=== PATIENT | male | born 1995 | race Caucasian/White ===

== ENCOUNTER 2020-08-29 20:39 | Emergency (ER) | payer BC, SELFPAY ==
[2020-08-29 21:30] VITALS: BP 171/92; PULSE 72; RESP 20; TEMP 36.6; O2SAT 98; BMI 20.3
[2020-08-29 22:01] LABS: UTC Strep Screen (Rapid) Negative (Negative)
[2020-08-29 22:02] LABS: UTC Influenza A Antigen Negative (Negative)
[2020-08-29 22:03] LABS: UTC Influenza B Antigen Negative (Negative)
--- NOTE | 2020-08-29 22:11 | HMH.EDUTC ---
[facility] [place] Disposition Clinical Impression: Viral syndrome, Exposure to COVID-19 virus Disposition: Home, Self-Care Condition on Discharge: Good Instructions: Preventing the Spread of Coronavirus Discharge Instructions Additional Instructions: Drink plenty of fluids. Take tylenol for pain or fever. Return if you begin to have difficulty breathing. Follow up with your regular doctor. GO TO THE ER FOR ANY WORSENING SYMPTOMS Referrals: Андрей Ferrari [Primary Care Provider] - Forms: Work/School Release Time of Disposition: 22:13 Medical Decision Making - Medical Records Medical records reviewed: No: I reviewed the patient's medical records. - Aníbal Inquiry Pt receiving controlled substance: No Vital Signs: 08/29/20 21:30 08/29/20 22:15 Temperature 97.9 F 97.9 F Temperature Source Temporal Artery Scan Pulse Rate 72 Pulse Rate [Right Brachial] 72 Respiratory Rate 20 20 Blood Pressure 171/92 H Blood Pressure [Right Arm] 171/92 H Blood Pressure Mean [Right Arm] 118 Blood Pressure Source [Right Arm] Automatic Cuff Blood Pressure Position [Right Arm] Sitting 02 Sat by Pulse Oximetry 98 Oxygen Delivery Method Room Air - Lab Data Lab Results 08/29/20 21:48: Influenza Type A Ag Negative, Influenza Type B Ag Negative 08/29/20 21:48: Strep Scn Rapid Clinic Negative Orders (Tests/Meds): ORDERS Category Date Time Status Covid-19 Nasal PCR ([facility]) Routine Lab 08/29/20 21:31 Received Strep Screen Confirmation Stat Micro 08/29/20 21:48 Received [facility] HPI - General Stated complaint: covid test Time Seen by Provider: 08/29/20 22:11 Mode of Arrival: Ambulatory Source of Information: Patient Limitations: No Limitations Description of Symptoms (Recalled from Triage Doc. by RN): PATIENT C/O CONGESTION, FATIGUE, SORE THROAT, AND HEADACHE X 2 DAYS. REQUESTING COVID TEST. HEENT Symptoms (Recalled from RN notes): Yes Resp Symptoms (Recalled from RN notes): No Skin Symptoms (Recalled from RN notes): No MS Symptoms (Recalled from RN notes): No Functional Status (Recalled from RN notes): WNL - History of Present Illness Provider Complaint: He states that he has been feeling bad since yesterday. Other family members have similar symptoms. He is worried about covid and would like to be tested. - Related Data Home Medications Medication Instructions Recorded Confirmed Pramipexole Di-HCl [Mirapex 1 tab PO DAILY 06/26/19 06/26/19 0.125mg tablet] Allergies Allergy/AdvReac Type Severity Reaction Status Date / Time No Known Allergies Allergy Verified 06/26/19 21:31 - Worker's Comp Is this a Worker's Comp case?: No H History - Hepatitis A Screen Drug use history?: No High risk sexual behaviors?: No History of sexually transmitted infection?: No Currently employed?: No Childcare worker?: No Do you have indoor plumbing?: Yes Do you have electricity?: Yes Attestation statement:: This patient has been screened for Hepatitis A risk factors. I have reviewed the patient's past medical history: Yes - Social History Smoking Status: Current every day smoker Tobacco Type: cigarettes # Packs/Day (cigarettes): 1 Alcohol Intake: never Occupational Status: other ROS Obtained: Yes All systems reviewed & no additional complaints - Constitutional Constitutional: Reports system reviewed and no additional complaints, except as docu - Eyes Eyes: Reports system reviewed and no additional complaints, except as docu - ENT Ears, Nose, Mouth, and Throat: Reports system reviewed and no additional complaints, except as docu - Cardiovascular Cardiovascular: Reports system reviewed and no additional complaints, except as docu Physical Exam - General General appearance: alert, in no apparent distress - Head Head exam: atraumatic, normocephalic, normal inspection - Eye Eye exam: Present: normal appearance, PERRL, EOMI - ENT ENT exam: Present: normal exam, normal
[2020-08-29 22:15] VITALS: BP 171/92; PULSE 72; RESP 20; TEMP 36.6; O2SAT 98
== END 2020-08-29 22:19 | disposition home or self-care (01) ==
PROVIDERS: Emergency Provider Nurse Practitioner Family; PCP Family Medicine
DX: Z20.822 Contact with and (suspected) exposure to COVID-19 (principal); B34.9 Viral infection, unspecified; F17.210 Nicotine dependence, cigarettes, uncomplicated
CPT/HCPCS: 87804; 87880; 99202; G0463; U0003

== ENCOUNTER 2020-11-21 13:12 | Emergency (ER) | payer BC, SELFPAY ==
[2020-11-21 13:15] VITALS: BP 144/84; PULSE 109; RESP 20; TEMP 37.8; O2SAT 98; BMI 20.3
[2020-11-21 13:53] LABS: UTC Strep Screen (Rapid) Negative (Negative)
[2020-11-21 13:56] VITALS: BP 144/84; PULSE 109; RESP 20; TEMP 37.8; O2SAT 98
--- NOTE | 2020-11-21 14:13 | HMH.EDUTC ---
[facility] [place] Disposition Clinical Impression: Viral syndrome Disposition: Home, Self-Care Condition on Discharge: Good Instructions: DI for Viral Syndrome, Preventing the Spread of Coronavirus Discharge Instructions Additional Instructions: Drink plenty of fluids. Take tylenol or ibuprofen for pain or fever. Take the medications as directed. Follow up with your regular doctor. GO TO THE ER FOR ANY WORSENING SYMPTOMS Prescriptions: Ondansetron [Zofran 4mg ODT] 4 mg PO Q8HP PRN #20 tab.rapdis PRN Reason: Nausea Transmission Status: Received by [id number] Benzonatate [Tessalon Perle 100mg Cap] 100 mg PO TIDP PRN #30 cap PRN Reason: Cough Transmission Status: Received by [id number] Azithromycin [Z-Kike 250mg Tab*] 250 mg PO UD DOSE PK #6 tab Transmission Status: Received by [id number] Referrals: Андрей Ferrari [Primary Care Provider] - Forms: Work/School Release Time of Disposition: 14:16 Medical Decision Making - Medical Records Medical records reviewed: No: I reviewed the patient's medical records. - Aníbal Inquiry Pt receiving controlled substance: No Vital Signs: 11/21/20 13:15 11/21/20 13:56 Temperature 100.0 F H 100.0 F H Temperature Source Oral Pulse Rate 109 H Pulse Rate [Right Brachial] 109 H Respiratory Rate 20 20 Blood Pressure 144/84 H Blood Pressure [Right Arm] 144/84 H Blood Pressure Mean [Right Arm] 104 Blood Pressure Source [Right Arm] Automatic Cuff Blood Pressure Position [Right Arm] Sitting 02 Sat by Pulse Oximetry 98 Oxygen Delivery Method Room Air - Lab Data Lab results reviewed: Yes: I reviewed the patient's lab results. Lab Results 11/21/20 13:47: Strep Scn Rapid Clinic Negative Orders (Tests/Meds): ORDERS Category Date Time Status Strep Screen Confirmation Stat Micro 11/21/20 13:47 Received [facility] [place] HPI - General Stated complaint: covid test Time Seen by Provider: 11/21/20 13:20 Mode of Arrival: Ambulatory Source of Information: Patient Limitations: No Limitations Description of Symptoms (Recalled from Triage Doc. by RN): PATIENT C/O COUGH, FEVER, AND HEADACHE THAT STARTED TODAY HEENT Symptoms (Recalled from RN notes): Yes Resp Symptoms (Recalled from RN notes): Yes Skin Symptoms (Recalled from RN notes): No MS Symptoms (Recalled from RN notes): No Functional Status (Recalled from RN notes): WNL - History of Present Illness Provider Complaint: He states that he has felt bad for the past 2 days. He has had a sore throat, chilling, low grade fever, and a cough. He lives with his [id number] and she currently has covid-19. - Related Data Home Medications Medication Instructions Recorded Confirmed Pramipexole Di-HCl [Mirapex 1 tab PO DAILY 06/26/19 06/26/19 0.125mg tablet] Previous Rx's Medication Instructions Recorded Azithromycin [Z-Kike 250mg Tab*] 250 mg PO UD DOSE PK #6 tab 11/21/20 Benzonatate [Tessalon Perle 100mg 100 mg PO TIDP PRN #30 cap 11/21/20 Cap] Ondansetron [Zofran 4mg ODT] 4 mg PO Q8HP PRN #20 tab.rapdis 11/21/20 Allergies Allergy/AdvReac Type Severity Reaction Status Date / Time No Known Allergies Allergy Verified 06/26/19 21:31 - Worker's Comp Is this a Worker's Comp case?: No [facility] History - Hepatitis A Screen Drug use history?: No High risk sexual behaviors?: No History of sexually transmitted infection?: No Currently employed?: No Childcare worker?: No Do you have indoor plumbing?: Yes Do you have electricity?: Yes Attestation statement:: This patient has been screened for Hepatitis A risk factors. I have reviewed the patient's past medical history: Yes - Social History Smoking Status: Current every day smoker Tobacco Type: cigarettes # Packs/Day (cigarettes): 1 Alcohol Intake: never Occupational Status: other ROS Obtained: Yes All systems reviewed & no additional complaints - Constitutional Constitutional: Reports system reviewe
--- NOTE | 2020-11-21 19:58 | PC.NURSE ---
PATIENT NOTIFIED OF POSITIVE COVID TEST AT THIS TIME
== END 2020-11-21 14:21 | disposition home or self-care (01) ==
PROVIDERS: Emergency Provider Nurse Practitioner Family; PCP Family Medicine
DX: U07.1 COVID-19 (principal); B34.9 Viral infection, unspecified; F17.210 Nicotine dependence, cigarettes, uncomplicated
CPT/HCPCS: 87880; 99203; G0463; U0003

== ENCOUNTER 2020-12-06 14:29 | Emergency (ER) | payer BC, SELFPAY ==
[2020-12-06 14:40] VITALS: BP 114/65; PULSE 62; RESP 20; TEMP 36.7; O2SAT 98; BMI 20.3
[2020-12-06 15:15] VITALS: BP 114/65; PULSE 62; RESP 20; TEMP 36.7; O2SAT 98
--- NOTE | 2020-12-06 15:35 | HMH.EDUTC ---
[facility] [place] Disposition Clinical Impression: Encounter for laboratory testing for COVID-19 virus Disposition: Home, Self-Care Condition on Discharge: Good Instructions: DI for COVID-19 (Suspected or Confirmed ), Coronavirus Disease 2019, Preventing the Spread of Coronavirus Discharge Instructions Additional Instructions: *Monitor Temp, Over the counter Motrin or Tylenol as directed/as needed Tylenol every 4 hours and Motrin every 6 hours (as long as your family doctor has told you that you can take it) for fever or pain. and straight to ER if unable to lower temp less than 101.0 after medication given Follow up IMMEDIATELY for new or worsening symptoms or no Noticeable improvement over the next 48-72 hours. 911 for difficulty breathing or swallowing You were tested for today for COVID19 your test result should be back in the next 24-48 hours, you may call to the [facility] to see if your test results are back in the next 48 hours [phone] [facility] hours are 9am-9pm You was given a handout with instructions for Self Quarantine and Self isolation for while you wait on test results and what to do if they are positive If you are positive the Health Dept will be contacting you also Make sure to take your Vitamins Vit. C Vit D and Zinc if you can take them Referrals: Андрей Ferrari [Primary Care Provider] - As needed Forms: Work/School Release Time of Disposition: 15:36 Medical Decision Making - Aníbal Inquiry Pt receiving controlled substance: No Aníbal was queried for this patient: No Vital Signs: 12/06/20 14:40 12/06/20 15:15 Temperature 98.1 F 98.1 F Temperature Source Oral Pulse Rate 62 Pulse Rate [Left Brachial] 62 Respiratory Rate 20 20 Blood Pressure 114/65 Blood Pressure [Left Arm] 114/65 Blood Pressure Mean [Left Arm] 81 Blood Pressure Source [Left Arm] Automatic Cuff Blood Pressure Position [Left Arm] Sitting 02 Sat by Pulse Oximetry 98 Oxygen Delivery Method Room Air Orders (Tests/Meds): ORDERS Category Date Time Status Covid-19 Nasal PCR ([facility]) Routine Lab 12/06/20 14:45 Received [facility] [place] HPI - General Stated complaint: covid Time Seen by Provider: 12/06/20 15:35 Mode of Arrival: Ambulatory Source of Information: Patient Limitations: No Limitations Description of Symptoms (Recalled from Triage Doc. by RN): PATIENT NEEDING A NEG COVID TEST TO RETURN TO WORK HEENT Symptoms (Recalled from RN notes): No Resp Symptoms (Recalled from RN notes): No Skin Symptoms (Recalled from RN notes): No MS Symptoms (Recalled from RN notes): No Functional Status (Recalled from RN notes): WNL - History of Present Illness Provider Complaint: Patient state that he has been under quarantine due to Dx with COVID on 11/21/20 states that he is feeling better and not having any symptoms at this time but needed to get tested again to see if he can return to work - Related Data Home Medications Medication Instructions Recorded Confirmed Pramipexole Di-HCl [Mirapex 1 tab PO DAILY 06/26/19 06/26/19 0.125mg tablet] Previous Rx's Medication Instructions Recorded Azithromycin [Z-Kike 250mg Tab*] 250 mg PO UD DOSE PK #6 tab 11/21/20 Benzonatate [Tessalon Perle 100mg 100 mg PO TIDP PRN #30 cap 11/21/20 Cap] Ondansetron [Zofran 4mg ODT] 4 mg PO Q8HP PRN #20 tab.rapdis 11/21/20 Allergies Allergy/AdvReac Type Severity Reaction Status Date / Time No Known Allergies Allergy Verified 06/26/19 21:31 - Worker's Comp Is this a Worker's Comp case?: No [facility] History - Hepatitis A Screen Drug use history?: No High risk sexual behaviors?: No History of sexually transmitted infection?: No Currently employed?: No Childcare worker?: No Do you have indoor plumbing?: Yes Do you have electricity?: Yes Attestation statement:: This patient has been screened for Hepatitis A risk factors. I have reviewed the patient's past medical history: Yes - Social History Smoking Status: Current every day smoker Tob
--- NOTE | 2020-12-07 21:13 | PC.NURSE ---
ATTEMPTED TO CALL REGARDING COVID RESULTS, NO ANSWER. LEFT VOICEMAIL WITH CALL BACK NUMBER
--- NOTE | 2020-12-07 21:27 | PC.NURSE ---
PT NOTIFIED OF POSITIVE COVID TEST RESULTS
== END 2020-12-06 15:43 | disposition home or self-care (01) ==
PROVIDERS: Emergency Provider Nurse Practitioner; PCP Family Medicine
DX: U07.1 COVID-19 (principal); F17.210 Nicotine dependence, cigarettes, uncomplicated
CPT/HCPCS: 99202; G0463; U0003

== ENCOUNTER 2020-12-16 15:45 | Emergency (ER) | payer BC, SELFPAY ==
[2020-12-16 16:30] VITALS: BP 116/79; PULSE 68; RESP 19; TEMP 36.8; O2SAT 98; BMI 22.4
--- NOTE | 2020-12-16 17:06 | HMH.EDUTC ---
[facility] [place] Clinical Impression: Encounter for laboratory testing for COVID-19 virus Disposition: Home, Self-Care Condition on Discharge: Good Instructions: DI for COVID-19 (Suspected or Confirmed ), Preventing the Spread of Coronavirus Discharge Instructions Additional Instructions: *Monitor Temp, Over the counter Motrin or Tylenol as directed/as needed Tylenol every 4 hours and Motrin every 6 hours (as long as your family doctor has told you that you can take it) for fever or pa-in. and straight to ER if unable to lower temp less than 101.0 after medication given Follow up IMMEDIATELY for new or worsening symptoms or no Noticeable improvement over the next 48-72 hours. 911 for difficulty breathing or swallowing You were tested for today for COVID19 your test result should be back in the next 24-48 hours, Check the [facility] to see if your test results are back in the next 48 it may say detected that means your result is positive.You was given handout instructions on how log on and see your results. If you do not have internet access you may call the [facility] for your results [phone] You was given a handout with instructions for Self Quarantine and Self isolation for while you wait on test results and what to do if they are positive If you are positive the Health Dept will be contacting you also Make sure to take your Vitamins Vit. C Vit D and Zinc if you can take them Referrals: Андрей Ferrari [Primary Care Provider] - As needed Forms: Work/School Release Time of Disposition: 17:10 Medical Decision Making - Aníbal Inquiry Pt receiving controlled substance: No Aníbal was queried for this patient: No Vital Signs: 12/16/20 16:30 Temperature 98.3 F Temperature Source Oral Pulse Rate [Right Brachial] 68 Respiratory Rate 19 Blood Pressure [Right Arm] 116/79 Blood Pressure Mean [Right Arm] 91 Blood Pressure Source [Right Arm] Automatic Cuff Blood Pressure Position [Right Arm] Sitting 02 Sat by Pulse Oximetry 98 Oxygen Delivery Method Room Air Orders (Tests/Meds): ORDERS Category Date Time Status Covid-19 Nasal PCR ([facility]) Routine Lab 12/16/20 16:40 Received [facility] [place] - General Stated complaint: covid symptoms/test Time Seen by Provider: 12/16/20 17:06 Mode of Arrival: Ambulatory Source of Information: Patient Limitations: No Limitations Description of Symptoms (Recalled from Triage Doc. by RN): NEEDING COVID TEST TO RETURN TO WORK HEENT Symptoms (Recalled from RN notes): No Resp Symptoms (Recalled from RN notes): No Skin Symptoms (Recalled from RN notes): No MS Symptoms (Recalled from RN notes): No Functional Status (Recalled from RN notes): WNL - History of Present Illness Provider Complaint: Patient state that he was positive for COVID on Nov 21 State that he has to have negative COVID test before he can return to work so he came in to get tested denies any symptoms - Related Data Home Medications Medication Instructions Recorded Confirmed Pramipexole Di-HCl [Mirapex 1 tab PO DAILY 06/26/19 06/26/19 0.125mg tablet] Previous Rx's Medication Instructions Recorded Azithromycin [Z-Kike 250mg Tab*] 250 mg PO UD DOSE PK #6 tab 11/21/20 Benzonatate [Tessalon Perle 100mg 100 mg PO TIDP PRN #30 cap 11/21/20 Cap] Ondansetron [Zofran 4mg ODT] 4 mg PO Q8HP PRN #20 tab.rapdis 11/21/20 Allergies Allergy/AdvReac Type Severity Reaction Status Date / Time No Known Allergies Allergy Verified 06/26/19 21:31 - Worker's Comp Is this a Worker's Comp case?: No [facility] History - Hepatitis A Screen Drug use history?: No High risk sexual behaviors?: No History of sexually transmitted infection?: No Currently employed?: No Childcare worker?: No Do you have indoor plumbing?: Yes Do you have electricity?: Yes Attestation statement:: This patient has been screened for Hepatitis A risk factors. I have reviewed the patient's past medical history: Yes - Social History S
[2020-12-16 17:13] VITALS: BP 116/79; PULSE 68; RESP 19; TEMP 36.8; O2SAT 98
--- NOTE | 2020-12-17 12:01 | PC.NURSE ---
Notified pt of results
== END 2020-12-16 17:17 | disposition home or self-care (01) ==
PROVIDERS: Emergency Provider Nurse Practitioner; PCP Family Medicine
DX: U07.1 COVID-19 (principal); F17.210 Nicotine dependence, cigarettes, uncomplicated
CPT/HCPCS: 99202; G0463; U0003